=== PATIENT | female | born 1950 | race Caucasian/White ===

== ENCOUNTER 2016-12-27 14:11 | Inpatient (IN) | payer OTHER ==
[2016-12-27] MEDS ORDERED: NORMAL SALINE 1000 ML 1,000 ML IV ONE (14:38)
--- NOTE | 2016-12-27 14:39 | ER Document Report ---
ED Medical Screen (RME) - General Chief Complaint: Breathing Difficulty Stated Complaint: SHORTNESS OF BREATH Time Seen by Provider: 12/27/16 14:29 Mode of Arrival: Medic Information source: Patient Notes: Patient presents complaining of rapid heart rate and exertional shortness of breath. Patient reports she had vomiting and diarrhea over the past several days. Patient with fever of 101 at this time. EMS gave Tylenol. Patient states she has had a history of rapid heart rate off and on over the past 10 years. TRAVEL OUTSIDE OF THE [place] IN LAST 30 DAYS: No - Related Data Allergies/Adverse Reactions: No Known Allergies Allergy (Verified 04/17/16 03:58) Past Medical History Psychiatric Medical History: Reports: Hx Bipolar Disorder, Hx Depression - and anxiety Past Surgical History: Reports: Hx Breast Surgery, Hx Section, Hx Orthopedic Surgery - L knee, R foot - Immunizations Hx Diphtheria, Pertussis, Tetanus Vaccination: Yes Physical Exam - Cardiovascular Rhythm: Tachycardia Heart sounds: S1 appreciated, S2 appreciated Course - Re-evaluation Re-evalutation: 12/27/16 14:39 Report and handout given to Dr. Haider
--- NOTE | 2016-12-27 14:53 | ER Document Report ---
ED General - General Chief Complaint: Breathing Difficulty Stated Complaint: SHORTNESS OF BREATH Time Seen by Provider: 12/27/16 14:29 Mode of Arrival: Medic Notes: 66-year-old female with history of "heart problem" consisting of rapid heart rate without clear diagnosis or medications presents with weakness dizziness, dyspnea on exertion and positional dizziness onset yesterday after having 4 days of vomiting which turned into diarrhea which is now resolving. She was brought immediately back to the room with hypotension diaphoresis and tachycardia. History is limited secondary to acuity. TRAVEL OUTSIDE OF THE [place] IN LAST 30 DAYS: No - Related Data Allergies/Adverse Reactions: No Known Allergies Allergy (Verified 04/17/16 03:58) Past Medical History - Social History Smoking Status: Current Every Day Smoker Family History: Reviewed & Not Pertinent Psychiatric Medical History: Reports: Hx Bipolar Disorder, Hx Depression - and anxiety Past Surgical History: Reports: Hx Breast Surgery, Hx Section, Hx Orthopedic Surgery - L knee, R foot - Immunizations Hx Diphtheria, Pertussis, Tetanus Vaccination: Yes Review of Systems - Review of Systems Notes: REVIEW OF SYSTEMS Limited secondary to acuity PHYSICAL EXAMINATION General: N pale diaphoretic Head: Atraumatic, normocephalic ENT: Mouth normal, oropharynx moist, no exudates or tonsillar enlargement Eyes: Conjunctiva normal, pupils equal, lids normal Neck: No JVD, supple, no guarding CVS: Tachycardia no edema Resp: No resp distress, equal and normal breath sounds bilaterally GI: Nondistended, soft, no tenderness to palpation, no rebound or guarding Ext: No deformities, no edema, normal range of motion in upper and lower ext Back: No CVA or midline TTP Skin: No rash, warm Lymphatic: No lymphadeopathy noted Neuro: Awake, alert. Face symmetric. GCS 15. Physical Exam - Vital signs Vitals: Pulse Ox 98 12/27/16 14:20 Course - Re-evaluation Re-evalutation: 12/27/16 14:52 66-year-old female presents with hypotension tachycardia diaphoresis. She has had diarrhea for a few days and has a history of some sort of rapid heart rate. The monitor shows a regular narrow complex tachycardia. EKG is performed immediately and shows an super ventricular tachycardia. I will try fluids, she will receive 1 L at which point she will be cardioverted for instability. Labs are sent. 12/27/16 15:37 Patient reassessed at about 3:25 PM. Her heart rate is decreased to the 140s and is still a regular narrow complex tachycardia, her blood pressure is increased to 120/90, and she is no longer diaphoretic and pale. At this point she does not require emergent cardioversion. I will follow-up her labs, and repeat her ECG after her second liter of fluid. 12/27/16 16:36 Patient on reassessment has blood pressure in the 100s but feels okay. Her heart rate is decreased to the 130s and appears to be sinus. Her labs have come back with an indeterminate troponin a low magnesium and potassium. This is likely secondary to diarrhea. I will replete this with IV potassium and magnesium and the patient will be admitted. I ordered 1L lactated Ringer's. 12/27/16 16:45 - Vital Signs Vital signs: Temp Pulse Resp BP Pulse Ox 16 121/91 H 99 12/27/16 15:31 12/27/16 15:31 12/27/16 15:31 - Laboratory Result Diagrams: 12/27/16 15:25 12/27/16 15:25 Laboratory results interpreted by me: 12/27/16 12/27/16 12/27/16 15:25 15:25 15:25 MCV 99 H VBG pCO2 VBG HCO3 Potassium 3.3 L Carbon Dioxide 20 L Magnesium 1.4 L Direct Bilirubin 0.5 H AST 268 H ALT 226 H Creatine Kinase 581 H CK-MB (CK-2) 11.70 H Urine Ketones 12/27/16 12/27/16 15:45 15:45 MCV VBG pCO2 28.6 L VBG HCO3 18.2 L Potassium Carbon Dioxide Magnesium Direct Bilirubin AST ALT Creatine Kinase CK-MB (CK-2) Urine Ketones TRACE H - EKG Interpretation by Me Rate: Tachycardia Rhythm: SVT Critical Care Note - Critical Care Note Total time excluding time spent on procedures (mins): 35 Comments: The above patient is critically ill. Not including procedures, but including direct re-evaluations, speaking with patient and/or consultants, interpreting results, and documenting, I spent the total amount of minute listed listed above on critical care time Discharge - Discharge Clinical Impression: Hypotension Qualifiers: Hypotension type: other hypotension type Qualified Code(s): I95.89 - Other hypotension Condition: Fair Disposition: ADMITTED INPATIENT Admitting Provider: Hospitalist Unit Admitted: [facility]
[2016-12-27] MEDS: NORMAL SALINE 1000 ML 1,000 ML IV PRN ×3 (15:18→21:41)
--- NOTE | 2016-12-27 15:46 | RADIOLOGY REPORT (SQ) ---
EXAM DESCRIPTION: CHEST SINGLE VIEW COMPLETED DATE/TIME: 12/27/2016 3:36 pm REASON FOR STUDY: fever, tachycardia COMPARISON: 04/17/2016 EXAM PARAMETERS: NUMBER OF VIEWS: One view. TECHNIQUE: Single frontal radiographic view of the chest acquired. RADIATION DOSE: NA LIMITATIONS: None. FINDINGS: LUNGS AND PLEURA: There is mild subsegmental atelectasis in the left base. There is no in filtrate or effusion. There is no mass. MEDIASTINUM AND HILAR STRUCTURES: No masses. Contour normal. HEART AND VASCULAR STRUCTURES: Heart normal in size. Normal vasculature. BONES: No acute findings. HARDWARE: None in the chest. OTHER: No other significant finding. IMPRESSION: NO ACUTE RADIOGRAPHIC FINDING IN THE CHEST. TECHNICAL DOCUMENTATION: JOB ID: [id number]
[2016-12-27 15:50] LABS: ABSOLUTE BASOPHILS # (AUTO) 0.1 10^3/uL (0.0-0.2); ABSOLUTE LYMPHOCYTES (AUTO) 1.6 10^3/uL (0.5-4.7); ABSOLUTE MONOCYTES (AUTO) 0.7 10^3/uL (0.1-1.4); ABSOLUTE NEUT (AUTO) 5.4 10^3/uL (1.7-8.2); BASOPHILS % (AUTO) 0.8 % (0-2); EOSINOPHILS % (AUTO) 0.6 % (0-6); HEMATOCRIT 41.3 % (36.0-47.0); HEMOGLOBIN 13.9 g/dL (12.0-15.5); HGB HCT DIFFERENCE 0.4; LYMPHOCYTES % (AUTO) 20.3 % (13-45); MEAN CORPUSCULAR HEMOGLOBIN 33.2 pg (27.0-33.4); MEAN CORPUSCULAR HGB CONC 33.7 g/dL (32.0-36.0); MEAN CORPUSCULAR VOLUME 99 fl (80-97); MONOCYTES % (AUTO) 8.5 % (3-13); RED BLOOD COUNT 4.19 10^6/uL (3.72-5.28); RED CELL DISTRIBUTION WIDTH 13.8 % (11.5-14.0); SEGMENTED NEUTROPHILS % (AUTO) 69.8 % (42-78); WHITE BLOOD COUNT 7.7 10^3/uL (4.0-10.5)
[2016-12-27 16:02] LABS: PROTHROMBIN TIME 12.7 SEC (11.4-15.4)
[2016-12-27 16:05] LABS: VENOUS BLOOD BASE EXCESS -4.8 mmol/L; VENOUS BLOOD HCO3 18.2 mmol/L (20-32); VENOUS BLOOD PCO2 28.6 mmHg (35-63); VENOUS BLOOD PH 7.42 (7.30-7.42)
[2016-12-27 16:11] LABS: APPEARANCE,URINE CLEAR; BILIRUBIN,URINE NEGATIVE (NEGATIVE); GLUCOSE, URINE NEGATIVE (NEGATIVE); KETONES,URINE TRACE mg/dL (NEGATIVE); LEUKOCYTE ESTERASE,URINE NEGATIVE (NEGATIVE); NITRITE,URINE NEGATIVE (NEGATIVE); PROTEIN,URINE NEGATIVE (NEGATIVE); URINE SPECIFIC GRAVITY 1.003; UROBILINOGEN,URINE NEGATIVE mg/dL (<2.0)
[2016-12-27 16:16] LABS: ALANINE AMINOTRANSFERASE 226 U/L (9-52); ALBUMIN 3.9 g/dL (3.5-5.0); ALKALINE PHOSPHATASE 87 U/L (38-126); ANION GAP 13 (5-19); ASPARTATE AMINO TRANSFERASE 268 U/L (14-36); BILIRUBIN,DIRECT 0.5 mg/dL (0.0-0.4); BILIRUBIN,TOTAL 1.3 mg/dL (0.2-1.3); BLOOD UREA NITROGEN 11 mg/dL (7-20); CALCIUM 9.1 mg/dL (8.4-10.2); CARBON DIOXIDE 20 mmol/L (22-30); CHLORIDE 107 mmol/L (98-107); CREATINE KINASE 581 U/L (30-135); GLUCOSE 110 mg/dL (75-110); MAGNESIUM 1.4 mg/dL (1.6-2.3); POTASSIUM 3.3 mmol/L (3.6-5.0); SODIUM 139.9 mmol/L (137-145)
[2016-12-27 16:27] LABS: CREATINE KINASE MB 11.7 ng/mL (<4.55)
[2016-12-27 16:29] LABS: TROPONIN I 0.382 ng/mL
[2016-12-27] MEDS ORDERED: RINGERS SOLUTION,LACTATED 1,000 ML IV ONE (16:36)
[2016-12-27] MEDS ORDERED: ADENOSINE INJ/PF 6 MG/2 ML SDV IV ONE (16:54)
[2016-12-27] MEDS ORDERED: DILTIAZEM HCL/D5W 125 ML IV PRN (18:18)
[2016-12-27] MEDS ORDERED: DILTIAZEM HCL INJ 25 MG/5 ML VIAL IV ONE (18:18)
[2016-12-27] MEDS ORDERED: ACETAMINOPHEN 325 MG TABLET PO PRN (18:20)
[2016-12-27] MEDS ORDERED: ONDANSETRON HCL INJ/PF 4 MG/2 ML SDV IV PRN (18:26)
--- NOTE | 2016-12-27 18:51 | PDOC H&P ---
History of Present Illness Admission Date/PCP: 12/27/16 17:50 Patient complains of: Palpitations History of Present Illness: NEDRA MEYER is a 66 year old female, with history of tachycardia presents to the hospital because of palpitation of several days duration. The patient has been having diarrhea for the past 4 days that is watery and dark but started to ease off according to the patient. there is no recent travel, intake of leftover foods, nor exposure to someone sick with diarrhea. Patient denies any chills or fever associated. She started to develop lightheadedness and dizziness intermittently. She is unsure whether she was tachycardic at that time but she started noticing it 3 days ago. There is no chest pain but the patient will feel lightheaded, nauseous, and sweaty. 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 The ambulance was called. It was reported that the patient had 160 of heart rate. In the emergency room patient was given boluses of IV fluids. The tachycardia improved in the 130s. Magnesium and potassium was low. Troponin was abnormal. Patient was then referred for admission. Patient denies any chest pain at all. Likewise there is no PND nor orthopnea. Past Medical History Cardiac Medical History: Reports: Other - Probable SVT Psychiatric Medical History: Reports: Bipolar Disorder, Depression - and anxiety , Post Traumatic Stress Disorder Past Surgical History Past Surgical History: Reports: Section, Orthopedic Surgery - L knee, R foot, Other - Lumpectomy Social History Information Source: Patient Smoking Status: Current Every Day Smoker Frequency of Alcohol Use: None Hx Recreational Drug Use: Yes Drugs: Marijuana Family History Family History: CAD, CVA, Other - Cancer of the mouth Parental Family History Reviewed: Yes Children Family History Reviewed: Yes Sibling(s) Family History Reviewed.: Yes Medication/Allergy Home Medications: No Home Medications 12/27/16 Allergies/Adverse Reactions: No Known Allergies Allergy (Verified 04/17/16 03:58) Review of Systems Constitutional: PRESENT: weakness - Generalized. ABSENT: chills, fever(s), headache(s), weight gain, weight loss Eyes: ABSENT: visual disturbances Ears: ABSENT: hearing changes Nose, Mouth, and Throat: ABSENT: mouth pain, sore throat Cardiovascular: PRESENT: palpitations. ABSENT: chest pain, dyspnea on exertion , edema, orthropnea Respiratory: PRESENT: cough. ABSENT: dyspnea, hemoptysis, sputum Gastrointestinal: PRESENT: diarrhea, heartburn, nausea. ABSENT: abdominal pain , bloating, coffee ground emesis, constipation, hematemesis, hematochezia, melena, vomiting Genitourinary: ABSENT: difficulty urinating, dysuria, hematuria Musculoskeletal: ABSENT: joint swelling Integumentary: ABSENT: pruritus, rash, wounds Neurological: ABSENT: abnormal gait, abnormal speech, confusion, dizziness, focal weakness, syncope Psychiatric: ABSENT: anxiety, depression, homidical ideation, suicidal ideation Endocrine: ABSENT: cold intolerance, heat intolerance, polydipsia, polyphagia, polyuria Hematologic/Lymphatic: ABSENT: easy bleeding, easy bruising Physical Exam Vital Signs: Temp Pulse Resp BP Pulse Ox 16 121/91 H 99 12/27/16 15:31 12/27/16 15:31 12/27/16 15:31 General appearance: PRESENT: no acute distress, cooperative, obese - Overweight Head exam: PRESENT: atraumatic, normocephalic Eye exam: PRESENT: conjunctiva pink, EOMI, PERRLA. ABSENT: scleral icterus Ear exam: PRESENT: normal external ear exam Mouth exam: PRESENT: dry mucosa, neck supple, tongue midline Throat exam: ABSENT: post pharyngeal erythema, tonsillar erythema, tonsillar exudate Neck exam: ABSENT: carotid bruit, JVD, lymphadenopathy, thyromegaly Respiratory exam: PRESENT: clear to auscultation francisco. ABSENT: rales, rhonchi, wheezes Cardiovascular exam: PRESENT: RRR, +S1, +S2, tachycardia. ABSENT: gallop, rubs Pulses: PRESENT: normal dorsalis pedis pul Vascular exam: PRESENT: normal capillary refill GI/Abdominal exam: PRESENT: hyperactive bowel sounds, soft. ABSENT: distended, guarding, mass, organolmegaly, rebound, tenderness Rectal exam: PRESENT: deferred Extremities exam: PRESENT: full ROM, other - Trace lower extremity edema. ABSENT: calf tenderness, clubbing Neurological exam: PRESENT: alert, awake, oriented to person, oriented to place , oriented to time, oriented to situation Psychiatric exam: PRESENT: appropriate affect, normal mood. ABSENT: homicidal ideation, suicidal ideation Skin exam: PRESENT: dry, intact, warm. ABSENT: cyanosis, rash Results Impressions: Chest X-Ray 12/27/16 14:36 IMPRESSION: NO ACUTE RADIOGRAPHIC FINDING IN THE CHEST. Assessment & Plan - Diagnosis (1) Hypotension Qualifiers: Hypotension type: other hypotension type Qualified Code(s): I95.89 - Other hypotension Is this a current diagnosis for this admission?: Yes (2) Supraventricular tachycardia Is this a current diagnosis for this admission?: Yes (3) Elevated troponin Is this a current diagnosis for this admission?: Yes (4) Diarrhea Qualifiers: Diarrhea type: presumed infectious Qualified Code(s): A09 - Infectious gastroenteritis and colitis, unspecified Is this a current diagnosis for this admission?: Yes (5) Major depression Qualifiers: Major depression recurrence: recurrent Active/Remission status: remission status unspecified Qualified Code(s): F33.9 - Major depressive disorder, recurrent, unspecified Is this a current diagnosis for this admission?: Yes (6) PTSD (post-traumatic stress disorder) Is this a current diagnosis for this admission?: Yes (7) Bipolar disorder Qualifiers: Active/Remission status: remission status unspecified Qualified Code (s): F31.9 - Bipolar disorder, unspecified Is this a current diagnosis for this admission?: Yes - Time Time Spent: 50 to 70 Minutes - Inpatient Certification Based on my medical assessment, after consideration of the patient's comorbidities, presenting symptoms, or acuity I expect that the services needed warrant INPATIENT care.: Yes I certify that my determination is in accordance with my understanding of Medicare's requirements for reasonable and necessary INPATIENT services [42 CFR 412.3e].: Yes Medical Necessity: Significant Comorbidiites Make Outpatient Treatment Too Risky , Need Close Monitoring Due to Risk of Patient Decompensation, Need For IV Fluids, Risk of Complication if Not Cared For in Hospital, Risk of Diagnosis Which Will Require Inpatient Eval/Care/Monitoring Post Hospital Care: D/C Shellfish Manager Documentation - Plan Summary Plan Summary: Patient will be admitted to [facility]. We will begin Cardizem drip after a bolus of Cardizem is given. We will serially monitor cardiac enzymes. I will put the patient on aspirin and Plavix, supplemental oxygen, and check a TSH. Cardiology was consulted, Dr. Lange we will evaluate the patient. In the meantime in terms of the diarrhea, I will obtain culture and Clostridium for difficile toxin. I will treated for infectious type of diarrhea with ciprofloxacin and Flagyl. I will hydrate the patient with normal saline. In terms of the abnormal liver function tests, we will obtain a hepatitis panel and an abdominal ultrasound. DVT prophylaxis with Lovenox will be placed. No need for full anticoagulation at this time as discussed with cardiology. Further testing depends on the initial evaluation as outlined above. Echocardiogram as per cardiology decision.
[2016-12-27] MEDS ORDERED: CLOPIDOGREL BISULFATE 75 MG TABLET PO ONE (19:00)
[2016-12-27] MEDS: MAGNESIUM SULFATE/D5W 100 ML IV SCH ×2 (19:11→20:20)
--- NOTE | 2016-12-27 19:17 | EKG REPORT ---
SEVERITY:- ABNORMAL ECG - SINUS RHYTHM INFERIOR INFARCT, ACUTE,, EVOLUTIONARY CHANGES. PROLONGED QT INTERVAL : Confirmed by: Colby Gan MD 27-Dec-2016 19:16:14
--- NOTE | 2016-12-27 19:17 | EKG REPORT ---
SEVERITY:- ABNORMAL ECG - SINUS TACHYCARDIA INFERIOR INFARCT, ACUTE EVOLUTIOANRY CHANGES PROLONGED QT INTERVAL : Confirmed by: Colby Gan MD 27-Dec-2016 19:16:54
--- NOTE | 2016-12-27 19:19 | EKG REPORT ---
SEVERITY:- ABNORMAL ECG - JUNCTIONAL TACHYCARDIA INFERIOR INFARCT, ACUTE, EVOLUTIOANRY CHANGES. PROLONGED QT INTERVAL : Confirmed by: Colby Gan MD 27-Dec-2016 19:18:02
[2016-12-27] MEDS: POTASSI CL 20 MEQ/50 ML RIDER 50 ML IV SCH ×2 (21:35→23:10)
[2016-12-27 22:40] LABS: CREATINE KINASE MB 9.49 ng/mL (<4.55); TROPONIN I 0.323 ng/mL
[2016-12-27] MEDS: METRONIDAZOLE 500 MG/NS RTU 100 ML IV SCH (22:50)
[2016-12-27] MEDS: CIPROFLOXACIN 400 MG/D5W RTU 400 MG/200 ML RTUPB IV SCH (23:36)
[2016-12-28 02:27] LABS: URINE BARBITURATES SCREEN NEGATIVE; URINE METHADONE SCREEN NEGATIVE; URINE OPIATES LOW NEGATIVE; URINE PHENCYCLIDINE SCREEN NEGATIVE
[2016-12-28] MEDS: METRONIDAZOLE 500 MG/NS RTU 100 ML IV SCH ×4 (04:01→20:20)
[2016-12-28 05:08] LABS: ANION GAP 9 (5-19); BLOOD UREA NITROGEN 7 mg/dL (7-20); CALCIUM 8.2 mg/dL (8.4-10.2); CARBON DIOXIDE 18 mmol/L (22-30); CHLORIDE 116 mmol/L (98-107); CREATININE RESULT 0.56 mg/dL (0.52-1.25); GLUCOSE 102 mg/dL (75-110); MAGNESIUM 1.7 mg/dL (1.6-2.3); PHOSPHORUS 1.8 mg/dL (2.5-4.5); POTASSIUM 3.2 mmol/L (3.6-5.0); SODIUM 143.3 mmol/L (137-145)
[2016-12-28] MEDS: NORMAL SALINE 1000 ML 1,000 ML IV PRN (05:08)
[2016-12-28] MEDS: LANSOPRAZOLE 30 MG TAB.RAP.DR PO SCH (05:08)
[2016-12-28 05:19] LABS: CREATINE KINASE MB 9.85 ng/mL (<4.55)
[2016-12-28 05:27] LABS: TROPONIN I 0.272 ng/mL
--- NOTE | 2016-12-28 07:51 | EKG REPORT ---
SEVERITY:- ABNORMAL ECG - SINUS RHYTHM BORDERLINE INFERIOR Q WAVES NONSPECIFIC T ABNORMALITIES, INFERIOR LEADS : Confirmed by: Colby Gan MD 28-Dec-2016 07:51:07
[2016-12-28] MEDS: POTASSI CL 20 MEQ/50 ML RIDER 20 MEQ/50 ML RTUPB IV SCH ×2 (08:24→10:14)
--- NOTE | 2016-12-28 08:30 | RADIOLOGY REPORT (SQ) ---
EXAM DESCRIPTION: U/S ABDOMEN COMPLETE W/DOPPLER COMPLETED DATE/TIME: 12/28/2016 7:33 am REASON FOR STUDY: abnormal LFTs, abdominal pain, diarrhea COMPARISON: None. TECHNIQUE: Dynamic and static grayscale images acquired of the abdomen and recorded on PACS. Additio nal selected color Doppler and spectral images recorded. LIMITATIONS: Study limited due to acoustical interference from fat or from air in the bowel. FINDINGS: PANCREAS: Limited visualization. LIVER: Echotexture is coarse with increased echogenicity consistent with fatty infiltration. Limited visualization left lobe. LIVER VASCULATURE: Normal directional flow of the main portal vein and hepatic veins. GALLBLADDER: No stones. Normal wall thickness. No pericholecystic fluid. ULTRASOUND-DETECTED COLON'S SIGN: Negative. INTRAHEPATIC DUCTS AND COMMON DUCT: CBD and intrahepatic ducts normal caliber. No filling defects. INFERIOR VENA CAVA: Normal flow. AORTA: No aneurysm. RIGHT KIDNEY: Normal size. Normal echogenicity. No solid or suspicious masses. No hydronephrosis. No calcifications. LEFT KIDNEY: Normal size. Normal echogenicity. No solid or suspicious masses. No hydronephrosis. No calcifications. SPLEEN:Obscured PERITONEAL AND PLEURAL SPACES: No ascites or effusions. OTHER: No other significant finding. IMPRESSION: Coarse echoes the liver concerning for fatty change. No focal mass or ascites. No gall stones identified. TECHNICAL DOCUMENTATION: JOB ID: [id number] [employer]- All Rights Reserved
[2016-12-28] MEDS ORDERED: ZOLPIDEM TARTRATE 5 MG TABLET PO PRN (10:12)
[2016-12-28] MEDS: ENOXAPARIN SODIUM INJ 40 MG/0.4 ML DISP.SYRIN SUBCUT SCH (10:14)
[2016-12-28] MEDS: CLOPIDOGREL BISULFATE 75 MG TABLET PO SCH (10:15)
[2016-12-28] MEDS: ASPIRIN 81 MG TABLET, CHEWABLE PO SCH (10:15)
--- NOTE | 2016-12-28 10:28 | PDOC PROGRESS REPORT ---
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 ABSENT: scleral icterus Mouth exam: PRESENT: moist, tongue midline Neck exam: ABSENT: JVD Respiratory exam: PRESENT: clear to auscultation francisco. ABSENT: rales, rhonchi, wheezes Cardiovascular exam: PRESENT: RRR. ABSENT: diastolic murmur, rubs, systolic murmur GI/Abdominal exam: PRESENT: normal bowel sounds, soft, tenderness - Mild lower abdominal tenderness. ABSENT: distended, guarding, mass, organolmegaly, rebound Rectal exam: PRESENT: deferred Extremities exam: ABSENT: calf tenderness, clubbing, pedal edema Neurological exam: PRESENT: alert, awake, oriented to person, oriented to place , oriented to time, oriented to situation, CN II-XII grossly intact. ABSENT: motor sensory deficit Psychiatric exam: PRESENT: appropriate affect Skin exam: PRESENT: dry, intact, warm. ABSENT: cyanosis, rash Results Laboratory Results: 12/28/16 04:25 12/28/16 04:25 Sodium 143.3 Potassium 3.2 L Chloride 116 H Carbon Dioxide 18 L Anion Gap 9 BUN 7 Creatinine 0.56 Est GFR ( Amer) > 60 Est GFR (Non-Af Amer) > 60 Glucose 102 Calcium 8.2 L Phosphorus 1.8 L Magnesium 1.7 12/27/16 12/27/16 12/28/16 21:50 21:50 04:25 Creatine Kinase 481 H 537 H CK-MB (CK-2) 9.49 H Troponin I 0.323 12/28/16 04:25 Creatine Kinase CK-MB (CK-2) 9.85 H Troponin I 0.272 Impressions: Chest X-Ray 12/27/16 14:36 IMPRESSION: NO ACUTE RADIOGRAPHIC FINDING IN THE CHEST. Abdomen Ultrasound 12/28/16 00:00 IMPRESSION: Coarse echoes the liver concerning for fatty change. No focal mass or ascites. No gallstones identified. Assessment & Plan - Diagnosis (1) Hypotension Qualifiers: Hypotension type: other hypotension type Qualified Code(s): I95.89 - Other hypotension Is this a current diagnosis for this admission?: YesPlan: Resolved with IV fluids. (2) Supraventricular tachycardia Is this a current diagnosis for this admission?: YesPlan: Patient is rate controlled at this time. (3) Bipolar disorder Qualifiers: Active/Remission status: remission status unspecified Qualified Code (s): F31.9 - Bipolar disorder, unspecified Is this a current diagnosis for this admission?: Yes (4) Diarrhea Qualifiers: Diarrhea type: presumed infectious Qualified Code(s): A09 - Infectious gastroenteritis and colitis, unspecified Is this a current diagnosis for this admission?: YesPlan: Has a positive C. difficile toxin. She is already been started on Cipro and Flagyl we will continue with those for now. (5) Elevated troponin Is this a current diagnosis for this admission?: YesPlan: Most likely secondary to the tachycardia. Troponins have been elevated but have been flat. She has been evaluated by cardiology. (6) PTSD (post-traumatic stress disorder) Is this a current diagnosis for this admission?: Yes - Time Time Spent with patient: 25-34 minutes - Inpatient Certification Medical Necessity: Need For IV Fluids, Need for IV Antibiotics
--- NOTE | 2016-12-28 11:27 | PDOC CONSULTATION ---
Consultation Consult Date: 12/28/16 Attending physician:: THERON MOLINA Consult reason:: SVT and abnormal troponin I History of Present Illness Admission Date/PCP: 12/27/16 18:20 Patient complains of: Palpitations History of Present Illness: NEDRA MEYER is a 66 year old female, with history of tachycardia presents to the hospital because of palpitation of several days duration. The patient has been having diarrhea for the past 4 days that is watery and dark but started to ease off according to the patient. there is no recent travel, intake of leftover foods, nor exposure to someone sick with diarrhea. Patient denies any chills or fever associated. She started to develop lightheadedness and dizziness intermittently. She is unsure whether she was tachycardic at that time but she started noticing it 3 days ago. There is no chest pain but the patient will feel lightheaded, nauseous, and sweaty. The patient reports that she was worked up by a psychiatric attendant before but could not tell why she has the tachycardia. The ambulance was called. It was reported that the patient had 160 of heart rate. In the emergency room patient was given boluses of IV fluids. The tachycardia improved in the 130s. Magnesium and potassium was low. Troponin was abnormal. Patient was then referred for admission. Patient denies any chest pain at all. Likewise there is no PND nor orthopnea. Electrocardiograms were reviewed. It seems patient had ST elevation in inferior and lateral chest leads consistent with inferolateral myocardial infarction. However patient has no chest pain and seems currently stable. Patient had general fatigue and tiredness. Patient also describes problems with sleep with history of snoring, daytime fatigue, sleepiness and also problems with insomnia. Patient denies any prior history of myocardial infarction, angina etc. Past Medical History Cardiac Medical History: Reports: Other - Probable SVT Psychiatric Medical History: Reports: Bipolar Disorder, Depression, Post Traumatic Stress Disorder Past Surgical History Past Surgical History: Reports: Section, Orthopedic Surgery - L knee, R foot, Other - Lumpectomy Social History Information Source: Patient Smoking Status: Current Some Day Smoker Cigarettes Packs Per Day: 0.5 Number of Years Smokin Frequency of Alcohol Use: None Hx Recreational Drug Use: No Drugs: None Hx Prescription Drug Abuse: No - Advance Directive Resuscitation Status: Full Code Family History Family History: CAD, CVA, Other - Cancer of the mouth Parental Family History Reviewed: Yes Children Family History Reviewed: Yes Sibling(s) Family History Reviewed.: Yes Medication/Allergy Home Medications: Aspirin [Aspirin EC] 81 mg PO DAILY 12/28/16 Naproxen Sodium [Aleve] 220 mg PO BIDP PRN 12/28/16 Allergies/Adverse Reactions: No Known Allergies Allergy (Verified 04/17/16 03:58) Review of Systems Review of Systems: Please see history of present illness and past medical history as wall. Constitutional: No fever or chills reported. Head : No recent chronic headaches, recent head injury. Eyes: No recent eye pain, diplopia, redness, discharge, acute visual changes. Ears: No recent chronic ear pain, acute hearing loss, ear discharge. Oral cavity: No recent ulcerations, bleeding, oral cavity discomfort. Neck: No recent acute neck pain reported. Hematologic: No recent easy bruising or bleeding or hematologic malignancy reported. Lymphatic: No recent lymphatic malignancy, chronic lymphadenopathy reported yet Cardiovascular system review: See history of present illness. History of palpitations Respiratory system review: No recent chronic cough, hemoptysis, blood clots in the lungs reported. Mild Shortness of breath on exertion Gastrointestinal system review: Negative for hematemesis, melena, positive for recent diarrhea and intermittent abdominal pain. Genitourinary system review: No recent acute or chronic hematuria, flank pain, UTI etc. reported. Skin system review: Negative for any recent abnormal bruising, no rash, no pruritus reported. Neurologic: No prior history of strokes, mini strokes, seizure disorder. Psychologic: No history of major psychosis or major depression reported. Musculoskeletal: Minor aches and pains reported. No acute joint swelling reported. Endocrine: No recent polyuria, polydipsia, recent heat or cold intolerance. Physical Exam Vital Signs: Temp Pulse Resp BP Pulse Ox 98.8 F 91 18 161/83 H 100 12/28/16 07:31 12/28/16 07:31 12/28/16 07:31 12/28/16 07:31 12/28/16 07:31 Intake & Output 12/27/16 12/28/16 12/29/16 06:59 06:59 06:59 Intake Total 1967 Output Total 300 Balance 1667 Weight 91 kg Exam: GENERAL: well-nourished and in no acute distress. Alert and oriented x3 HEAD: Atraumatic, normocephalic. EYES: Pupils equal round and reactive to light, extraocular movements intact, sclera anicteric, conjunctiva are normal. ENT: TMs normal, nares patent, oropharynx clear without exudates. Moist mucous membranes. No oral ulcerations or bleeding gums noted NECK: supple without lymphadenopathy. Trachea is central. No cervical or axillary lymphadenopathy noted. Carotids are 2+, JVD WNL LUNGS: Respiration seems nonlabored, no significant accessory muscle action noted. Breath sounds clear to auscultation bilaterally and equal noted. No wheezes rales or rhonchi noted. No significant dullness noted on percussion. CHEST: Palpation of the chest wall shows no significant chest wall tenderness. No other significant abnormalities noted. HEART: [place] [employer], No PSH, 1/6 CONTRERAS aortic area, 1/6 henderson systolic murmur mitral area, no rubs, no gallops. ABDOMEN: Soft, no significant tenderness appreciated, normoactive bowel sounds. No guarding, no rebound. No rigidity noted . No masses appreciated. EXTREMITIES: Pedal pulses are 1-2+, no calf tenderness noted. No clubbing or cyanosis.trace to 1+ pedal edema noted NEUROLOGICAL: Focused neurological exam showed no significant neurologic deficit. Normal speech, no focal weakness appreciated. PSYCH: Normal mood, normal affect. Judgment and insight within normal limits. SKIN: No significant ecchymosis, rash, ulcerations or signs of pruritus noted. MUSCULOSKELETAL EXAM: No significant joint swelling noted. Results Laboratory Results: 12/28/16 04:25 12/28/16 04:25 Sodium 143.3 Potassium 3.2 L Chloride 116 H Carbon Dioxide 18 L Anion Gap 9 BUN 7 Creatinine 0.56 Est GFR ( Amer) > 60 Est GFR (Non-Af Amer) > 60 Glucose 102 Calcium 8.2 L Phosphorus 1.8 L Magnesium 1.7 12/27/16 12/27/16 12/28/16 21:50 21:50 04:25 Creatine Kinase 481 H 537 H CK-MB (CK-2) 9.49 H Troponin I 0.323 12/28/16 04:25 Creatine Kinase CK-MB (CK-2) 9.85 H Troponin I 0.272 EKG Comments: Twelve-lead EKG shows ST elevation in inferior and lateral chest leads Impressions: Chest X-Ray 12/27/16 14:36 IMPRESSION: NO ACUTE RADIOGRAPHIC FINDING IN THE CHEST. Abdomen Ultrasound 12/28/16 00:00 IMPRESSION: Coarse echoes the liver concerning for fatty change. No focal mass or ascites. No gallstones identified. Assessment & Plan - Diagnosis (1) ST elevation (STEMI) myocardial infarction Qualifiers: Involved coronary artery: unspecified coronary artery Qualified Code(s): I21.3 - ST elevation (STEMI) myocardial infarction of unspecified site Is this a current diagnosis for this admission?: Yes (2) Diarrhea Qualifiers: Diarrhea type: presumed infectious Qualified Code(s): A09 - Infectious gastroenteritis and colitis, unspecified Is this a current diagnosis for this admission?: Yes (3) Elevated troponin Is this a current diagnosis for this admission?: Yes (4) Bipolar disorder Qualifiers: Active/Remission status: remission status unspecified Qualified Code(s): F31.9 - Bipolar disorder, unspecified Is this a current diagnosis for this admission?: Yes (6) Supraventricular tachycardia Is this a current diagnosis for this admission?: Yes (7) Hypokalemia Is this a current diagnosis for this admission?: Yes (8) Tobacco abuse Is this a current diagnosis for this admission?: Yes - Notes Notes: ST segment elevation myocardial infarction: Initial EKG shows ST segment elevation myocardial infarction. Most likely brought on by supraventricular tachycardia. Currently patient stable. Will recommend a stress test prior to discharge. Will optimize medical therapy by starting statins, beta blockers and ARAM inhibitors/ARB. Continue with aspirin and Plavix therapy. A 2D echo has been ordered for risk stratification. Diarrhea: Being evaluated by the hospitalist. Elevated troponin I: Most likely related to non-ST segment elevation myocardial infarction brought on by tachycardia. Supraventricular tachycardia: Continue Cardizem for the time being. Will start patient on beta-kerry. Hypokalemia: Probably related to diarrhea. Continue with replacement therapy. Tobacco abuse: Patient advised to quit smoking. - Time Time Spent: 50 to 70 Minutes - CODE STATUS was discussed, patient remains full code. Surrogate decision-maker not yet identified by the patient. Currently patient making her own decisions. Multiple medical problems were addressed. More than 50% of the time spent coordinating care, discussing management plans with involved caregivers. Management plans discussed with involved personnels. Medical decision making was of moderate to high complexity, patient's has multiple comorbidities. Medications reviewed and adjusted accordingly: Yes
[2016-12-28] MEDS ORDERED: LISINOPRIL 5 MG TABLET PO ONE (11:30)
[2016-12-28] MEDS ORDERED: METOPROLOL SUCCINATE 25 MG TAB.SR.24H PO ONE (11:30)
[2016-12-28 12:28] LABS: CREATINE KINASE MB 9.69 ng/mL (<4.55); TROPONIN I 0.199 ng/mL
[2016-12-28] MEDS: CIPROFLOXACIN 400 MG/D5W RTU 400 MG/200 ML RTUPB IV SCH ×2 (15:06→22:57)
--- NOTE | 2016-12-28 19:22 | XCELERA REPORT ---
[address] [address] Transthoracic Echocardiogram Report Name: NEDRA MEYER Age: 66 yrs Gender: Female : 1950 Patient Status: Inpatient Patient Location: [id number]\A Study Date: 12/28/2016 02:18 PM Procedure: A complete two-dimensional transthoracic echocardiogram was performed (2D, M-mode, spectral and color flow Doppler). The study was technically difficult with many images being suboptimal in quality. Reason For Study: abn troponin, svt Ordering Physician: BELKIS RADFORD Performed By: Jessica Crabtree Interpretation Summary The left ventricular ejection fraction is normal. There is mild concentric left ventricular hypertrophy. Doppler measurements suggest pseudonormalized left ventricular relaxation, which is associated with grade II/IV or mild to moderate diastolic dysfunction The left ventricle is grossly normal size. Wall motion cannot be accurately commented on, but no definite regional wall motion abnormalities noted. The right ventricle is mildly dilated. The right ventricle appears to be hypertrophied The right ventricular systolic function is normal. The left atrial size is normal. The right atrium is normal in size There is a trace to mild amount of mitral regurgitation There is no mitral valve stenosis. No aortic regurgitation is present. There is no aortic valve stenosis There is a trace to mild amount of tricuspid regurgitation There is mild pulmonary hypertension by echo Right ventricular systolic pressure is estimated to be elevated at 30- 40mmHg. Minimal pericardial effusion. MMode/2D Measurements \T\ Calculations RVDd: 3.5 cm LVIDd: 5.1 cm FS: 39.1 % Ao root diam: 3.2 cm IVSd: 0.97 cm LVIDs: 3.1 cm EDV(Teich): 126.1 ml Ao root area: 8.1 cm2 LVPWd: 0.96 cm ESV(Teich): 38.8 ml EF(Teich): 69.3 % Doppler Measurements \T\ Calculations MV E max arturo: MV dec slope: Ao V2 max: LV V1 max P.0 cm/sec 476.9 cm/sec2 170.2 cm/sec 8.2 mmHg MV A max arturo: MV dec time: Ao max PG: LV V1 max: 91.1 cm/sec 0.18 sec 11.6 mmHg 143.0 cm/sec MV E/A: 0.96 PA V2 max: PI end-d arturo: TR max arturo: 117.9 cm/sec 100.0 cm/sec 263.1 cm/sec PA max PG: TR max P.6 mmHg 27.8 mmHg Left Ventricle The left ventricle is grossly normal size. There is mild concentric left ventricular hypertrophy. The left ventricular ejection fraction is normal. Doppler measurements suggest pseudonormalized left ventricular relaxation, which is associated with grade II/IV or mild to moderate diastolic dysfunction. Wall motion cannot be accurately commented on, but no definite regional wall motion abnormalities noted. Right Ventricle The right ventricle is mildly dilated. The right ventricle appears to be hypertrophied. The right ventricular systolic function is normal. Atria The right atrium is normal in size. The left atrial size is normal. Interarterial septum not well visualized and not well dopplered. Cannot comment on ASD/PFO presence. Mitral Valve The mitral valve is grossly normal. There is no mitral valve stenosis. There is a trace to mild amount of mitral regurgitation. Aortic Valve The aortic valve is grossly normal. There is no aortic valve stenosis. No aortic regurgitation is present. Tricuspid Valve The tricuspid valve is not well visualized, but is grossly normal. There is no tricuspid stenosis. There is a trace to mild amount of tricuspid regurgitation. There is mild pulmonary hypertension by echo. Right ventricular systolic pressure is estimated to be elevated at 30-40mmHg. Pulmonic Valve The pulmonic valve is not well visualized. Great Vessels The aortic root is not well visualized but is probably normal size. The inferior vena cava appeared normal and decreased > 50% with respiration (RAP 5-10 mmHg). Effusions Minimal pericardial effusion. : BELKIS RADFORD > Belkis Radford
[2016-12-28] MEDS: LISINOPRIL 5 MG TABLET PO SCH (22:56)
[2016-12-28] MEDS: ATORVASTATIN CALCIUM 40 MG TABLET PO SCH (22:56)
[2016-12-28] MEDS: METOPROLOL SUCCINATE 25 MG TAB.SR.24H PO SCH (22:57)
[2016-12-29] MEDS: METRONIDAZOLE 500 MG/NS RTU 100 ML IV SCH ×4 (02:58→22:01)
[2016-12-29] MEDS: LANSOPRAZOLE 30 MG TAB.RAP.DR PO SCH (05:18)
[2016-12-29] MEDS: NORMAL SALINE 1000 ML 1,000 ML IV PRN ×2 (05:19→17:07)
[2016-12-29 07:42] LABS: ABSOLUTE BASOPHILS # (AUTO) 0.1 10^3/uL (0.0-0.2); ABSOLUTE EOSINOPHILS # (AUTO) 0.1 10^3/uL (0.0-0.6); ABSOLUTE LYMPHOCYTES (AUTO) 2.4 10^3/uL (0.5-4.7); ABSOLUTE MONOCYTES (AUTO) 0.6 10^3/uL (0.1-1.4); ABSOLUTE NEUT (AUTO) 3.6 10^3/uL (1.7-8.2); BASOPHILS % (AUTO) 0.8 % (0-2); EOSINOPHILS % (AUTO) 1.7 % (0-6); HEMATOCRIT 32.8 % (36.0-47.0); HGB HCT DIFFERENCE 0.2; LYMPHOCYTES % (AUTO) 35.6 % (13-45); MEAN CORPUSCULAR HGB CONC 33.4 g/dL (32.0-36.0); MEAN CORPUSCULAR VOLUME 99 fl (80-97); MONOCYTES % (AUTO) 9.4 % (3-13); RED BLOOD COUNT 3.32 10^6/uL (3.72-5.28); RED CELL DISTRIBUTION WIDTH 13.7 % (11.5-14.0); SEGMENTED NEUTROPHILS % (AUTO) 52.5 % (42-78); WHITE BLOOD COUNT 6.8 10^3/uL (4.0-10.5)
[2016-12-29 08:43] LABS: ANION GAP 8 (5-19); BLOOD UREA NITROGEN 6 mg/dL (7-20); CALCIUM 8.6 mg/dL (8.4-10.2); CARBON DIOXIDE 20 mmol/L (22-30); CHLORIDE 115 mmol/L (98-107); CREATININE RESULT 0.54 mg/dL (0.52-1.25); GLUCOSE 97 mg/dL (75-110); POTASSIUM 3.4 mmol/L (3.6-5.0); SODIUM 143.1 mmol/L (137-145)
[2016-12-29] MEDS: CIPROFLOXACIN 400 MG/D5W RTU 400 MG/200 ML RTUPB IV SCH ×2 (11:14→23:03)
[2016-12-29] MEDS: ENOXAPARIN SODIUM INJ 40 MG/0.4 ML DISP.SYRIN SUBCUT SCH (11:14)
[2016-12-29] MEDS: LISINOPRIL 5 MG TABLET PO SCH ×2 (11:15→21:59)
[2016-12-29] MEDS: ASPIRIN 81 MG TABLET, CHEWABLE PO SCH (11:15)
[2016-12-29] MEDS: CLOPIDOGREL BISULFATE 75 MG TABLET PO SCH (11:15)
[2016-12-29] MEDS: METOPROLOL SUCCINATE 25 MG TAB.SR.24H PO SCH ×2 (11:16→21:58)
--- NOTE | 2016-12-29 12:20 | PDOC PROGRESS REPORT ---
Subjective Progress Note for:: 12/29/16 Subjective:: Denies any chest pain Physical Exam Vital Signs: Temp Pulse Resp BP Pulse Ox 98.7 F 75 18 139/70 H 100 12/29/16 07:54 12/29/16 07:54 12/29/16 07:54 12/29/16 07:54 12/29/16 07:54 Intake & Output 12/28/16 12/29/16 12/30/16 06:59 06:59 06:59 Intake Total 1967 3717 Output Total 300 380 Balance 1667 3337 Weight 91 kg 92.2 kg General appearance: PRESENT: no acute distress Eye exam: PRESENT: conjunctiva pink. ABSENT: scleral icterus Mouth exam: PRESENT: moist, tongue midline Neck exam: ABSENT: JVD Respiratory exam: PRESENT: clear to auscultation francisco. ABSENT: rales, rhonchi, wheezes Cardiovascular exam: PRESENT: RRR. ABSENT: diastolic murmur, rubs, systolic murmur GI/Abdominal exam: PRESENT: normal bowel sounds, soft. ABSENT: distended, guarding, mass, organolmegaly, rebound, tenderness Extremities exam: ABSENT: calf tenderness, clubbing, pedal edema Neurological exam: PRESENT: alert, awake, oriented to person, oriented to place , oriented to time, oriented to situation, CN II-XII grossly intact. ABSENT: motor sensory deficit Psychiatric exam: PRESENT: appropriate affect Skin exam: PRESENT: dry, intact, warm. ABSENT: cyanosis, rash Results Laboratory Results: 12/29/16 04:35 12/29/16 04:35 12/29/16 12/29/16 04:35 04:35 WBC 6.8 RBC 3.32 L Hgb 11.0 L D Hct 32.8 L MCV 99 H MCH 33.0 MCHC 33.4 RDW 13.7 Plt Count 171 Seg Neutrophils % 52.5 Lymphocytes % 35.6 Monocytes % 9.4 Eosinophils % 1.7 Basophils % 0.8 Absolute Neutrophils 3.6 Absolute Lymphocytes 2.4 Absolute Monocytes 0.6 Absolute Eosinophils 0.1 Absolute Basophils 0.1 Sodium 143.1 Potassium 3.4 L Chloride 115 H Carbon Dioxide 20 L Anion Gap 8 BUN 6 L Creatinine 0.54 Est GFR ( Amer) > 60 Est GFR (Non-Af Amer) > 60 Glucose 97 Calcium 8.6 12/27/16 12/27/16 12/28/16 21:50 21:50 04:25 Creatine Kinase 481 H 537 H CK-MB (CK-2) 9.49 H Troponin I 0.323 12/28/16 12/28/16 04:25 11:27 Creatine Kinase CK-MB (CK-2) 9.85 H 9.69 H Troponin I 0.272 0.199 Impressions: Chest X-Ray 12/27/16 14:36 IMPRESSION: NO ACUTE RADIOGRAPHIC FINDING IN THE CHEST. Abdomen Ultrasound 12/28/16 00:00 IMPRESSION: Coarse echoes the liver concerning for fatty change. No focal mass or ascites. No gallstones identified. Assessment & Plan - Diagnosis (1) Hypotension Qualifiers: Hypotension type: other hypotension type Qualified Code(s): I95.89 - Other hypotension Is this a current diagnosis for this admission?: Yes Plan: Resolved with IV fluids. (2) Supraventricular tachycardia Is this a current diagnosis for this admission?: Yes Plan: Patient is rate controlled at this time. (3) Bipolar disorder Qualifiers: Active/Remission status: remission status unspecified Qualified Code(s): F31.9 - Bipolar disorder, unspecified Is this a current diagnosis for this admission?: Yes (4) Diarrhea Qualifiers: Diarrhea type: presumed infectious Qualified Code(s): A09 - Infectious gastroenteritis and colitis, unspecified Is this a current diagnosis for this admission?: Yes Plan: Has a positive C. difficile toxin. She is on Cipro and Flagyl we will continue with those for now. (5) Elevated troponin Is this a current diagnosis for this admission?: Yes Plan: Most likely secondary to the tachycardia. Troponins have been elevated but have been flat. She has been evaluated by cardiology. There was ST elevation on initial EKG. Cardiology to do stress test (6) PTSD (post-traumatic stress disorder) Is this a current diagnosis for this admission?: Yes - Time Time Spent with patient: 25-34 minutes - Inpatient Certification Medical Necessity: Need Close Monitoring Due to Risk of Patient Decompensation, Need for IV Antibiotics
--- NOTE | 2016-12-29 13:05 | DRAGON STRESS TEST REPORT ---
INTRAVENOUS LEXISCAN CARDIOLITE STRESS TEST USING SINGLE PHOTON EMMISION COMPUTERIZED TOMOGRAPHIC. DATE OF PROCEDURE: December 29, 2016 INDICATION : STEMI CARDIAC RISK FACTORS: Hypertension, dyslipidemia RESTING EKG:Sinus rhythm, no baseline ST-T wave changes STRESS EKG: No significant changes noted with LexiScan bolus REASON FOR TERMINATION: Protocol. PROCEDURE REPORT: Baseline heart rate 74 beats per minute with blood pressure of 131/90. Patient had no significant complaints. Heart rate at 2 minutes post bolus 95 with a blood pressure of 130/87 3 minutes post bolus heart rate 99 with blood pressure of 133/86. No significant EKG changes were noted. Patient had no significant complaints during the procedure or postprocedure. Patient injected with Aminophyllin 75 mg at 3 minutes or later after Lexiscan bolus. CONCLUSIONS: Normal EKG and hemodynamic response to IV LexiScan. NUCLEAR DATA: At rest the patient was given 14.85 millicuries of technetium 99 sestamibi injected intravenously. As per protocol rest gated SPECT images were obtained. Subsequently the patient was given intravenous LexiScan at a dose of 0.4 mg in 5 mL intravenously, followed by flush with normal saline. Subsequently the stress dose of 43.5 millicuries of technetium 99 sestamibi was injected intravenously. As per protocol stress gated images were obtained. NUCLEAR INTERPRETATION: Both raw and processed data were used for interpretation. Visual, qualitative, computer-generated quantitative data was used. There was good myocardial uptake of technetium compound. Motion artifact and soft tissue attenuations were noted. Increased visceral uptake was noted. No definitive areas of transient perfusion defect noted. Mild fixed perfusion defect noted in the mid inferior wall consistent with mild scar. EKG gated imaging showed LV EF at 64 %, rest and stress gated EF similar visually. T. I D. ratio was 1.10. Lung heart ratio noted to be within normal limits 0.33. No significant extracardiac and abnormal radiotracer activities were noted. RV free wall uptake was noted to be Mildly increased. IMPRESSION: Also refer to comments under nuclear interpretation. Also test results needs to be interpreted in the context of pretest probability. 1. There is no definitive scintigraphic evidence of LexiScan induced myocardial ischemia. 2. Mild fixed perfusion defect noted in the mid inferior wall consistent with mild scar. 3. EKG gated imaging shows left ventricular ejection fraction of approximately 64%. 4. Clinical correlation requested as occasionally single vessel disease or balanced ischemia could be missed. In approximately 10% of the cases Lexiscan may not cause adequate vasodilatory stress. RECOMMENDATIONS: Aggressive risk factor modification, medical therapy. Clinical correlation with echocardiogram derived ejection fraction. Inability to exercise by itself can lead to increased cardiovascular event risks. Consider cardiology consultation and or follow-up if clinically indicated. I AM AVAILABLE FOR CARDIOLOGY CONSULTATION AND FOLLOWUP IF REQUESTED BY PMD Belkis Buitrago M.D., NICK Bindery Helper jammer hooker, Board certified in cardiovascular diseases, Nuclear cardiology, Echocardiography Cardiac CT and cardiac MRI Ph. [phone] [facility]
[2016-12-29] MEDS ORDERED: AMINOPHYLLINE INJ/PF 250 MG/10 ML SDV IV ONE (14:30)
[2016-12-29] MEDS ORDERED: REGADENOSON INJ 0.4 MG/5 ML DISP.SYRIN IV ONE (14:30)
[2016-12-29] MEDS: ATORVASTATIN CALCIUM 40 MG TABLET PO SCH (21:58)
[2016-12-30] MEDS: METRONIDAZOLE 500 MG/NS RTU 100 ML IV SCH (03:35)
[2016-12-30] MEDS: NORMAL SALINE 1000 ML 1,000 ML IV PRN (03:46)
[2016-12-30 05:20] LABS: ABSOLUTE EOSINOPHILS # (AUTO) 0.1 10^3/uL (0.0-0.6); ABSOLUTE LYMPHOCYTES (AUTO) 2.1 10^3/uL (0.5-4.7); ABSOLUTE MONOCYTES (AUTO) 0.6 10^3/uL (0.1-1.4); ABSOLUTE NEUT (AUTO) 4.7 10^3/uL (1.7-8.2); BASOPHILS % (AUTO) 0.7 % (0-2); EOSINOPHILS % (AUTO) 1.4 % (0-6); HEMATOCRIT 31.5 % (36.0-47.0); HEMOGLOBIN 10.7 g/dL (12.0-15.5); HGB HCT DIFFERENCE 0.6; LYMPHOCYTES % (AUTO) 27.4 % (13-45); MEAN CORPUSCULAR HEMOGLOBIN 33.4 pg (27.0-33.4); MEAN CORPUSCULAR HGB CONC 33.9 g/dL (32.0-36.0); MEAN CORPUSCULAR VOLUME 99 fl (80-97); MONOCYTES % (AUTO) 8.2 % (3-13); RED BLOOD COUNT 3.19 10^6/uL (3.72-5.28); RED CELL DISTRIBUTION WIDTH 14.4 % (11.5-14.0); SEGMENTED NEUTROPHILS % (AUTO) 62.3 % (42-78); WHITE BLOOD COUNT 7.5 10^3/uL (4.0-10.5)
[2016-12-30 05:36] LABS: ANION GAP 9 (5-19); BLOOD UREA NITROGEN 4 mg/dL (7-20); CALCIUM 8.7 mg/dL (8.4-10.2); CARBON DIOXIDE 23 mmol/L (22-30); CHLORIDE 111 mmol/L (98-107); GLUCOSE 99 mg/dL (75-110); POTASSIUM 3.2 mmol/L (3.6-5.0)
[2016-12-30] MEDS: LANSOPRAZOLE 30 MG TAB.RAP.DR PO SCH (05:38)
[2016-12-30] MEDS ORDERED: POTASSI CL 20 MEQ/50 ML RIDER 20 MEQ/50 ML RTUPB IV ONE (07:30)
[2016-12-30] MEDS ORDERED: ONDANSETRON HCL INJ/PF 4 MG/2 ML SDV IV PRN (08:00)
[2016-12-30] MEDS ORDERED: ALBUTEROL SULFATE 0.083% NEB 2.5 MG/3 ML AMPUL NEB PRN (08:56)
[2016-12-30] MEDS ORDERED: POTASSIUM CHLORIDE 10 MEQ TABLET.SA PO SCH (10:00)
[2016-12-30] MEDS: CLOPIDOGREL BISULFATE 75 MG TABLET PO SCH (10:47)
[2016-12-30] MEDS: ENOXAPARIN SODIUM INJ 40 MG/0.4 ML DISP.SYRIN SUBCUT SCH (10:48)
[2016-12-30] MEDS: METOPROLOL SUCCINATE 25 MG TAB.SR.24H PO SCH (10:48)
[2016-12-30] MEDS: LISINOPRIL 5 MG TABLET PO SCH (10:49)
[2016-12-30] MEDS: ASPIRIN 81 MG TABLET, CHEWABLE PO SCH (10:49)
--- NOTE | 2016-12-30 12:21 | PDOC PROGRESS REPORT ---
Subjective Progress Note for:: 12/29/16 Subjective:: Patient seems to be doing better with gradual improvement. Pt is denying any chest arm or neck discomfort. Patient denying any PND, orthopnea. Patient denied any sustained palpitations, dizziness, syncope, near syncope. Patient denying any fever chills. Patient denying any other significant discomfort. Patient is maintaining sinus rhythm. Patient on questioning admitted to history of snoring, difficulty falling asleep, staying asleep, daytime fatigue and somnolence. Nuclear stress test procedure was explained to the patient in detail. Risks benefits were discussed and informed consent was obtained. Alternatives were discussed. Patient informed that based on risk factors, physical exam, lab data findings and symptoms there is at least intermediate probability of underlying CAD. Nuclear stress test procedure was therefore scheduled. Review of systems: Rest review of systems negative. Medications: Medications have been reviewed. Physical Exam Vital Signs: Temp Pulse Resp BP Pulse Ox 98.3 F 78 17 149/96 H 100 12/29/16 11:41 12/29/16 11:41 12/29/16 11:41 12/29/16 11:41 12/29/16 11:41 Intake & Output 12/28/16 12/29/16 12/30/16 06:59 06:59 06:59 Intake Total 1967 3717 100 Output Total 300 380 Balance 1667 3337 100 Weight 91 kg 92.2 kg Exam: GENERAL: well-nourished and in no acute distress. Alert and oriented x3 HEAD: Atraumatic, normocephalic. EYES: Pupils equal round and reactive to light, extraocular movements intact, sclera anicteric, conjunctiva are normal. ENT: TMs normal, nares patent, oropharynx clear without exudates. Moist mucous membranes. No oral ulcerations or bleeding gums noted NECK: supple without lymphadenopathy. Trachea is central. No cervical or axillary lymphadenopathy noted. Carotids are 2+, JVD WNL LUNGS: Respiration seems nonlabored, no significant accessory muscle action noted. Breath sounds clear to auscultation bilaterally and equal noted. No wheezes rales or rhonchi noted. No significant dullness noted on percussion. CHEST: Palpation of the chest wall shows no significant chest wall tenderness. No other significant abnormalities noted. 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 ABDOMEN: Soft, no significant tenderness appreciated, normoactive bowel sounds. No guarding, no rebound. No rigidity noted . No masses appreciated. EXTREMITIES: Pedal pulses are 1-2+, no calf tenderness noted. No clubbing or cyanosis.trace to 1+ pedal edema noted NEUROLOGICAL: Focused neurological exam showed no significant neurologic deficit. Normal speech, no focal weakness appreciated. PSYCH: Normal mood, normal affect. Judgment and insight within normal limits. SKIN: No significant ecchymosis, rash, ulcerations or signs of pruritus noted. MUSCULOSKELETAL EXAM: No significant joint swelling noted. Results Laboratory Results: 12/29/16 04:35 12/29/16 04:35 12/29/16 12/29/16 04:35 04:35 WBC 6.8 RBC 3.32 L Hgb 11.0 L D Hct 32.8 L MCV 99 H MCH 33.0 MCHC 33.4 RDW 13.7 Plt Count 171 Seg Neutrophils % 52.5 Lymphocytes % 35.6 Monocytes % 9.4 Eosinophils % 1.7 Basophils % 0.8 Absolute Neutrophils 3.6 Absolute Lymphocytes 2.4 Absolute Monocytes 0.6 Absolute Eosinophils 0.1 Absolute Basophils 0.1 Sodium 143.1 Potassium 3.4 L Chloride 115 H Carbon Dioxide 20 L Anion Gap 8 BUN 6 L Creatinine 0.54 Est GFR ( Amer) > 60 Est GFR (Non-Af Amer) > 60 Glucose 97 Calcium 8.6 12/27/16 12/27/16 12/28/16 21:50 21:50 04:25 Creatine Kinase 481 H 537 H CK-MB (CK-2) 9.49 H Troponin I 0.323 12/28/16 12/28/16 04:25 11:27 Creatine Kinase CK-MB (CK-2) 9.85 H 9.69 H Troponin I 0.272 0.199 EKG Comments: Telemetry strips shows sinus rhythm, no sustained tachycardia or bradycardia arrhythmias noted. Impressions: Chest X-Ray 12/27/16 14:36 IMPRESSION: NO ACUTE RADIOGRAPHIC FINDING IN THE CHEST. Abdomen Ultrasound 12/28/16 00:00 IMPRESSION: Coarse echoes the liver concerning for fatty change. No focal mass or ascites. No gallstones identified. Assessment & Plan - Diagnosis (1) ST elevation (STEMI) myocardial infarction Qualifiers: Involved coronary artery: unspecified coronary artery Qualified Code(s): I21.3 - ST elevation (STEMI) myocardial infarction of unspecified site Is this a current diagnosis for this admission?: Yes (2) Diarrhea Qualifiers: Diarrhea type: presumed infectious Qualified Code(s): A09 - Infectious gastroenteritis and colitis, unspecified Is this a current diagnosis for this admission?: Yes (3) Elevated troponin Is this a current diagnosis for this admission?: Yes (4) Bipolar disorder Qualifiers: Active/Remission status: remission status unspecified Qualified Code(s): F31.9 - Bipolar disorder, unspecified Is this a current diagnosis for this admission?: Yes (6) Supraventricular tachycardia Is this a current diagnosis for this admission?: Yes (7) Sleep-disordered breathing Is this a current diagnosis for this admission?: Yes (8) Hypokalemia Is this a current diagnosis for this admission?: Yes - Notes Notes: ST segment elevation myocardial infarction: Nuclear stress test performed today. Results discussed. Initial EKG shows ST segment elevation myocardial infarction. Most likely brought on by supraventricular tachycardia. Currently patient stable. Nuclear stress was negative for any significant ischemia. A small area of fixed defect noted in the mid inferior wall. These results were discussed with the patient. Will optimize medical therapy by starting statins, beta blockers and ARAM inhibitors/ARB. Continue with aspirin and Plavix therapy. 2D echo results shows normal LVEF. This was discussed with the patient. Would recommend dual antiplatelet therapy for at least a month. Diarrhea: Being evaluated by the hospitalist. Elevated troponin I: Most likely related to non-ST segment elevation myocardial infarction brought on by tachycardia. Nuclear images did show a fixed defect indicative of myocardial infarction. Supraventricular tachycardia: Continue Cardizem for the time being. Patient tolerating beta-blockers. Hypokalemia: Continue with replacement therapy. Sleep disordered breathing: Patient advised to lose weight and schedule a sleep study as an outpatient. Discussed increased risk of stroke and heart attack with untreated sleep apnea. - Time Time with patient: Greater than 35 minutes - CODE STATUS was discussed, patient remains full code. Surrogate decision-maker unchanged. Multiple medical problems were addressed. More than 50% of the time spent coordinating care, discussing management plans with involved caregivers. Management plans discussed with involved personnels. Medical decision making was of high complexity, patient's has multiple comorbidities. Patient was seen multiple times. Total time exceeds 40 minutes. In the morning nuclear stress test procedure, risks benefits, alternatives were discussed. Patient seen during the stress test. Patient also seen after stress test when results were discussed with the patient in detail. Patient's questions were answered. Nuclear stress test results were discussed with the patient. Patient was informed that no definitive evidence of pharmacologic stress-induced ischemia noted. Small area of mid inferior wall fixed defects were noted. Patient informed that occasionally worse disease could be missed. However based on the current study results, would recommend aggressive risk factor modification and medical therapy. Right now, recommendations are for aggressive risk factor modification and medical management.
--- NOTE | 2016-12-30 12:32 | PDOC PROGRESS REPORT ---
Subjective Progress Note for:: 12/30/16 Subjective:: Patient seems to be doing better with gradual improvement. Pt is denying any chest arm or neck discomfort. Patient denying any PND, orthopnea. Patient denied any sustained palpitations, dizziness, syncope, near syncope. Patient denying any fever chills. Patient denying any other significant discomfort. Patient is maintaining sinus rhythm. Patient on questioning admitted to history of snoring, difficulty falling asleep, staying asleep, daytime fatigue and somnolence. Results of nuclear stress test discussed again. Patient questions were answered. Review of systems: Rest review of systems negative. Medications: Medications have been reviewed. Physical Exam Vital Signs: Temp Pulse Resp BP Pulse Ox 99.0 F 73 16 162/72 H 100 12/30/16 07:10 12/30/16 09:41 12/30/16 09:41 12/30/16 07:10 12/30/16 09:41 Intake & Output 12/29/16 12/30/16 12/31/16 06:59 06:59 06:59 Intake Total 3717 4022 Output Total 380 Balance 3337 4022 Weight 92.2 kg 90.2 kg Exam: GENERAL: well-nourished and in no acute distress. Alert and oriented x3 HEAD: Atraumatic, normocephalic. EYES: Pupils equal round and reactive to light, extraocular movements intact, sclera anicteric, conjunctiva are normal. ENT: TMs normal, nares patent, oropharynx clear without exudates. Moist mucous membranes. No oral ulcerations or bleeding gums noted NECK: supple without lymphadenopathy. Trachea is central. No cervical or axillary lymphadenopathy noted. Carotids are 2+, JVD WNL LUNGS: Respiration seems nonlabored, no significant accessory muscle action noted. Breath sounds clear to auscultation bilaterally and equal noted. No wheezes rales or rhonchi noted. No significant dullness noted on percussion. CHEST: Palpation of the chest wall shows no significant chest wall tenderness. No other significant abnormalities noted. 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 ABDOMEN: Soft, no significant tenderness appreciated, normoactive bowel sounds. No guarding, no rebound. No rigidity noted . No masses appreciated. EXTREMITIES: Pedal pulses are 1-2+, no calf tenderness noted. No clubbing or cyanosis.trace to 1+ pedal edema noted NEUROLOGICAL: Focused neurological exam showed no significant neurologic deficit. Normal speech, no focal weakness appreciated. PSYCH: Normal mood, normal affect. Judgment and insight within normal limits. SKIN: No significant ecchymosis, rash, ulcerations or signs of pruritus noted. MUSCULOSKELETAL EXAM: No significant joint swelling noted. Results Laboratory Results: 12/30/16 04:27 12/30/16 04:27 12/30/16 12/30/16 04:27 04:27 WBC 7.5 RBC 3.19 L Hgb 10.7 L Hct 31.5 L MCV 99 H MCH 33.4 MCHC 33.9 RDW 14.4 H Plt Count 171 Seg Neutrophils % 62.3 Lymphocytes % 27.4 Monocytes % 8.2 Eosinophils % 1.4 Basophils % 0.7 Absolute Neutrophils 4.7 Absolute Lymphocytes 2.1 Absolute Monocytes 0.6 Absolute Eosinophils 0.1 Absolute Basophils 0.0 Sodium 143.0 Potassium 3.2 L Chloride 111 H Carbon Dioxide 23 Anion Gap 9 BUN 4 L Creatinine 0.50 L Est GFR ( Amer) > 60 Est GFR (Non-Af Amer) > 60 Glucose 99 Calcium 8.7 12/28/16 04:15 Stool - Stool - Final 12/27/16 12/27/16 12/28/16 21:50 21:50 04:25 Creatine Kinase 481 H 537 H CK-MB (CK-2) 9.49 H Troponin I 0.323 12/28/16 12/28/16 04:25 11:27 Creatine Kinase CK-MB (CK-2) 9.85 H 9.69 H Troponin I 0.272 0.199 EKG Comments: Telemetry strips shows sinus rhythm without any sustained tachycardia or bradycardia arrhythmias. Impressions: Chest X-Ray 12/27/16 14:36 IMPRESSION: NO ACUTE RADIOGRAPHIC FINDING IN THE CHEST. Abdomen Ultrasound 12/28/16 00:00 IMPRESSION: Coarse echoes the liver concerning for fatty change. No focal mass or ascites. No gallstones identified. Assessment & Plan - Diagnosis (1) ST elevation (STEMI) myocardial infarction Qualifiers: Involved coronary artery: unspecified coronary artery Qualified Code(s): I21.3 - ST elevation (STEMI) myocardial infarction of unspecified site Is this a current diagnosis for this admission?: Yes (2) Diarrhea Qualifiers: Diarrhea type: presumed infectious Qualified Code(s): A09 - Infectious gastroenteritis and colitis, unspecified Is this a current diagnosis for this admission?: Yes (3) Elevated troponin Is this a current diagnosis for this admission?: Yes (4) Bipolar disorder Qualifiers: Active/Remission status: remission status unspecified Qualified Code(s): F31.9 - Bipolar disorder, unspecified Is this a current diagnosis for this admission?: Yes (6) Supraventricular tachycardia Is this a current diagnosis for this admission?: Yes (7) Sleep-disordered breathing Is this a current diagnosis for this admission?: Yes (8) Hypokalemia Is this a current diagnosis for this admission?: Yes - Notes Notes: ST segment elevation myocardial infarction: Nuclear stress test Results discussed. Patient sustained STEMI inferior wall. Most likely brought on by supraventricular tachycardia. Currently patient stable. Nuclear stress was negative for any significant ischemia. A small area of fixed defect noted in the mid inferior wall. These results were discussed with the patient. Will optimize medical therapy by starting statins, beta blockers and ARAM inhibitors/ ARB. Continue with aspirin and Plavix therapy. 2D echo results shows normal LVEF. This was discussed with the patient. Would recommend dual antiplatelet therapy for at least a month. Patient blood pressure readings noted to be high , therefore will increase lisinopril dose. Diarrhea: Being evaluated by the hospitalist. Elevated troponin I: Most likely related to non-ST segment elevation myocardial infarction brought on by tachycardia. Nuclear images did show a fixed defect indicative of myocardial infarction. Supraventricular tachycardia: Will discontinue Cardizem. Patient tolerating beta-blockers. Hypokalemia: Continue with replacement therapy. Sleep disordered breathing: Patient advised to lose weight and schedule a sleep study as an outpatient. Discussed increased risk of stroke and heart attack with untreated sleep apnea. - Time Time with patient: Greater than 35 minutes - CODE STATUS was discussed, patient remains full code. Surrogate decision-maker unchanged. Multiple medical problems were addressed. More than 50% of the time spent coordinating care, discussing management plans with involved caregivers. Management plans discussed with involved personnels. Medical decision making was of moderate to high complexity, patient's has multiple comorbidities. Medications reviewed and adjusted accordingly: Yes
[2016-12-30 13:20] VITALS: BP 153/81
[2016-12-30] MEDS ORDERED: METRONIDAZOLE 500 MG TABLET PO SCH (14:00)
--- NOTE | 2016-12-30 14:41 | PDOC DISCHARGE SUMMARY ---
General - Admit/Disc Date/PCP Admission Date/Primary Care Provider: 12/27/16 18:20 Discharge Date: 12/30/16 - Discharge Diagnosis (1) Diarrhea Is this a current diagnosis for this admission?: Yes Summary: Secondary to C. difficile colitis. (2) Hypotension Is this a current diagnosis for this admission?: Yes Summary: Most likely secondary to the patient's underlying diarrhea and volume depletion. It has resolved. (3) Elevated troponin Is this a current diagnosis for this admission?: Yes Summary: Patient's initial EKG showed ST segment elevation which quickly resolved. Neligh the patient has suffered a STEMI. The patient had troponins that were positive. She was evaluated by cardiology who performed a Cardiolite stress test. There was no evidence for reversible ischemia. This most likely related to the SVT and hypotension. She is being treated with aspirin, beta-kerry, statin. (4) Supraventricular tachycardia Is this a current diagnosis for this admission?: Yes Summary: Patient presented with SVT. She was initially hypotensive. Patient also was noted to have elevated troponins most likely secondary to SVT. (5) Bipolar disorder Is this a current diagnosis for this admission?: Yes (6) PTSD (post-traumatic stress disorder) Is this a current diagnosis for this admission?: Yes - Additional Information Resuscitation Status: Full Code Discharge Diet: Cardiac Discharge Activity: Activity As Tolerated Home Medications: Aspirin [Aspirin EC] 81 mg PO DAILY 12/28/16 Naproxen Sodium [Aleve] 220 mg PO BIDP PRN 12/28/16 Atorvastatin Calcium [Lipitor 40 mg Tablet] 40 mg PO QHS #30 tablet 12/30/16 Clopidogrel Bisulfate [Plavix 75 mg Tablet] 75 mg PO DAILY #30 tablet 12/30/16 Lisinopril [Prinivil 5 mg Tablet] 5 mg PO Q12 #60 tablet 12/30/16 Metoprolol Succinate [Toprol Xl 25 mg Tab.sr] 25 mg PO Q12 #60 tab.sr.24h Metronidazole [Flagyl 500 mg Tablet] 500 mg PO Q8 #20 tablet 12/30/16 Potassium Chloride [Klor-Con 10 Meq Tablet.sa] 10 meq PO Q12 #60 tablet.sa 12/30 History of Present Illness History of Present Illness: NEDRA MEYER is a 66 year old female who presented with tachycardia and palpitations for several days prior to presentation. Patient had diarrhea for 4 days previous with dark watery stool. The patient also has felt lightheaded and was noted to be hypotensive and tachycardic with heart rate of 160 when she presented. This responded to IV fluids. Patient also was noted to have elevated troponin as admitted for further workup. Hospital Course Hospital Course: 66-year-old female who presented with palpitations and was found to have SVT along with hypotension and diarrhea secondary to C. difficile colitis. Patient was treated with IV fluids and her hypotension and SVT improved. The patient was treated for her C. difficile colitis with Flagyl and her diarrhea resolved. Because of positive troponins cardiology was consulted. The patient's initial presenting EKG did show ST segment elevation in light of her positive troponin diagnosed her with a STEMI. Patient however did not have any chest pain associated with this. She underwent a Cardiolite stress test which showed no evidence for reversible ischemia but a small fixed defect. Patient is being treated with aspirin, beta kerry, statin. Cardiology also recommended an outpatient sleep study as that may be contributing to some of her problems. On the day of discharge she was having no diarrhea and was tolerating her diet well with no chest discomfort. Patient will follow up with her primary care in the next 2 weeks. She will follow-up as an outpatient sleep study with Dr. Buitrago. She also request follow-up psychiatry for her bipolar disorder. Physical Exam Vital Signs: Temp Pulse Resp BP Pulse Ox 99.1 F 83 18 153/81 H 96 12/30/16 11:21 12/30/16 11:21 12/30/16 11:21 12/30/16 11:21 12/30/16 11:21 Intake & Output 12/29/16 12/30/16 12/31/16 06:59 06:59 06:59 Intake Total 3717 4022 437 Output Total 380 Balance 3337 4022 437 Weight 92.2 kg 90.2 kg General appearance: PRESENT: no acute distress Eye exam: PRESENT: conjunctiva pink. ABSENT: scleral icterus Mouth exam: PRESENT: moist, tongue midline Neck exam: ABSENT: JVD Respiratory exam: PRESENT: clear to auscultation [place]. ABSENT: rales, rhonchi, wheezes Cardiovascular exam: PRESENT: RRR. ABSENT: diastolic murmur, rubs, systolic murmur GI/Abdominal exam: PRESENT: normal bowel sounds, soft. ABSENT: distended, guarding, mass, organolmegaly, rebound, tenderness Extremities exam: ABSENT: calf tenderness, clubbing, pedal edema Neurological exam: PRESENT: alert, awake, oriented to person, oriented to place , oriented to time, oriented to situation, CN II-XII grossly intact. ABSENT: motor sensory deficit Psychiatric exam: PRESENT: appropriate affect Skin exam: PRESENT: dry, intact, warm. ABSENT: cyanosis, rash Results Laboratory Results: 12/30/16 04:27 12/30/16 04:27 12/30/16 12/30/16 04:27 04:27 WBC 7.5 RBC 3.19 L Hgb 10.7 L Hct 31.5 L MCV 99 H MCH 33.4 MCHC 33.9 RDW 14.4 H Plt Count 171 Seg Neutrophils % 62.3 Lymphocytes % 27.4 Monocytes % 8.2 Eosinophils % 1.4 Basophils % 0.7 Absolute Neutrophils 4.7 Absolute Lymphocytes 2.1 Absolute Monocytes 0.6 Absolute Eosinophils 0.1 Absolute Basophils 0.0 Sodium 143.0 Potassium 3.2 L Chloride 111 H Carbon Dioxide 23 Anion Gap 9 BUN 4 L Creatinine 0.50 L Est GFR ( Amer) > 60 Est GFR (Non-Af Amer) > 60 Glucose 99 Calcium 8.7 12/28/16 04:15 Stool - Stool - Final 12/27/16 12/27/16 12/28/16 21:50 21:50 04:25 Creatine Kinase 481 H 537 H CK-MB (CK-2) 9.49 H Troponin I 0.323 12/28/16 12/28/16 04:25 11:27 Creatine Kinase CK-MB (CK-2) 9.85 H 9.69 H Troponin I 0.272 0.199 Impressions: Chest X-Ray 12/27/16 14:36 IMPRESSION: NO ACUTE RADIOGRAPHIC FINDING IN THE CHEST. Abdomen Ultrasound 12/28/16 00:00 IMPRESSION: Coarse echoes the liver concerning for fatty change. No focal mass or ascites. No gallstones identified. Qualifiers PATEINT BEING DISCHARGED WITH ANY OF THE FOLLOWING DIAGNOSIS?: No Plan Discharge Plan: Discharged home in stable condition. Will follow with primary care in 2 weeks. Follow-up with cardiology for sleep study in 1 week. Follow with psychiatry in 1-2 weeks. Time Spent: Greater than 30 Minutes
[2016-12-30] MEDS ORDERED: LISINOPRIL 5 MG TABLET PO SCH (22:00)
[2016-12-31] MEDS ORDERED: LANSOPRAZOLE 30 MG TAB.RAP.DR PO SCH (06:00)
== END 2016-12-30 15:39 | disposition home or self-care (01) | DRG 281 ==
LOC: ER 14:11 → UNDOADMIN 17:50 → EH 17:50 → 3N 21:15
PROVIDERS: ADMIT Family Medicine; ATTEND Family Medicine
DX: I21.19 ST elevation (STEMI) myocardial infarction involving other coronary artery of inferior wall (principal); I47.1 Supraventricular tachycardia; A04.7 Enterocolitis due to Clostridium difficile; E87.6 Hypokalemia; F31.9 Bipolar disorder, unspecified; F43.10 Post-traumatic stress disorder, unspecified; Z79.82 Long term (current) use of aspirin; Z79.899 Other long term (current) drug therapy; Z79.02 Long term (current) use of antithrombotics/antiplatelets; F17.210 Nicotine dependence, cigarettes, uncomplicated
CPT/HCPCS: 36415; 71010; 76700; 78452; 80048; 80053; 80074; 80307; 81001; 82550; 82553; 82803; 83605; 83735; 84100; 84443; 84484; 85025; 85610; 87040; 87045; 87086; 87205; 87493; 93005; 93010; 93017; 93306; 93976; 94640; 99291; A9500; J0280; J0744; J1650; J2785; J3475; J3480; J7030; J7120; Q9969

== ENCOUNTER 2017-03-08 11:45 | Emergency (ER) | payer OTHER ==
[2017-03-08] MEDS ORDERED: ASPIRIN 81 MG TABLET, CHEWABLE PO ONE (12:06)
[2017-03-08 12:18] LABS: ABSOLUTE BASOPHILS # (AUTO) 0.1 10^3/uL (0.0-0.2); ABSOLUTE EOSINOPHILS # (AUTO) 0.1 10^3/uL (0.0-0.6); ABSOLUTE LYMPHOCYTES (AUTO) 2.6 10^3/uL (0.5-4.7); ABSOLUTE MONOCYTES (AUTO) 0.7 10^3/uL (0.1-1.4); ABSOLUTE NEUT (AUTO) 4.1 10^3/uL (1.7-8.2); BASOPHILS % (AUTO) 1.2 % (0-2); EOSINOPHILS % (AUTO) 1.6 % (0-6); HEMATOCRIT 41.2 % (36.0-47.0); HGB HCT DIFFERENCE 0.8; LYMPHOCYTES % (AUTO) 34.5 % (13-45); MEAN CORPUSCULAR HEMOGLOBIN 33.6 pg (27.0-33.4); MEAN CORPUSCULAR HGB CONC 33.9 g/dL (32.0-36.0); MEAN CORPUSCULAR VOLUME 99 fl (80-97); MONOCYTES % (AUTO) 9.3 % (3-13); RED BLOOD COUNT 4.16 10^6/uL (3.72-5.28); RED CELL DISTRIBUTION WIDTH 14.3 % (11.5-14.0); SEGMENTED NEUTROPHILS % (AUTO) 53.4 % (42-78); WHITE BLOOD COUNT 7.6 10^3/uL (4.0-10.5)
[2017-03-08 12:39] LABS: ALANINE AMINOTRANSFERASE 102 U/L (9-52); ALBUMIN 4.6 g/dL (3.5-5.0); ALKALINE PHOSPHATASE 80 U/L (38-126); ANION GAP 15 (5-19); ASPARTATE AMINO TRANSFERASE 83 U/L (14-36); BILIRUBIN,DIRECT 0.3 mg/dL (0.0-0.4); BILIRUBIN,TOTAL 0.7 mg/dL (0.2-1.3); BLOOD UREA NITROGEN 15 mg/dL (7-20); CALCIUM 10.4 mg/dL (8.4-10.2); CARBON DIOXIDE 17 mmol/L (22-30); CHLORIDE 111 mmol/L (98-107); CREATINE KINASE 197 U/L (30-135); CREATININE RESULT 0.67 mg/dL (0.52-1.25); GLUCOSE 93 mg/dL (75-110); POTASSIUM 4.5 mmol/L (3.6-5.0); SODIUM 142.8 mmol/L (137-145); TOTAL PROTEIN 7.9 g/dL (6.3-8.2)
[2017-03-08 12:43] LABS: CREATINE KINASE MB 2.77 ng/mL (<4.55)
[2017-03-08 12:44] LABS: TROPONIN I < 0.012 ng/mL
--- NOTE | 2017-03-08 12:48 | ER Document Report ---
ED General - General Chief Complaint: Palpitations Stated Complaint: CHEST PAIN Time Seen by Provider: 03/08/17 12:34 Mode of Arrival: Medic Information source: Patient, Emergency Med Personnel TRAVEL OUTSIDE OF THE [place] IN LAST 30 DAYS: No - HPI Patient complains to provider of: palpitations Onset: This morning Onset/Duration: Gradual Quality of pain: No pain Associated symptoms: None Exacerbated by: Denies Relieved by: Denies Similar symptoms previously: Yes Recently seen / treated by doctor: No Notes: Patient is a 66-year-old female with history of STEMI in December. At that time she was noted to be in SVT. She had a negative stress test at that time. Patient reports since then she is always felt short of breath. This morning, patient noted that she was feeling palpitations. She does not know what her heart rate was. She took an extra metoprolol and drink a lot of water. She also did a Valsalva maneuver. Patient states her palpitations resolved when EMS got there. No chest pain. No change at her baseline shortness of breath. This is her first episode of palpitations since her hospital discharge in December. - Related Data Allergies/Adverse Reactions: No Known Allergies Allergy (Verified 04/17/16 03:58) Past Medical History - General Information source: Patient, [facility] Records - Social History Smoking Status: Unknown if Ever Smoked Chew tobacco use (# tins/day): No Frequency of alcohol use: None Drug Abuse: None Family History: CAD, CVA, Other - Cancer of the mouth Psychiatric Medical History: Reports: Hx Bipolar Disorder, Hx Depression, Hx Post Traumatic Stress Disorder Past Surgical History: Reports: Hx Breast Surgery, Hx Section, Hx Orthopedic Surgery - L knee, R foot, Other - Lumpectomy - Immunizations Hx Diphtheria, Pertussis, Tetanus Vaccination: Yes Review of Systems - Review of Systems Cardiovascular: Palpitations Respiratory: No symptoms reported -: Yes All other systems reviewed and negative Physical Exam - Vital signs Vitals: Resp Pulse Ox 16 99 03/08/17 11:57 03/08/17 11:57 Interpretation: Normal - General General appearance: Appears well, Alert - HEENT Head: Normocephalic, Atraumatic Eyes: Normal Pupils: PERRL - Respiratory Respiratory status: No respiratory distress Chest status: Nontender Breath sounds: Normal Chest palpation: Normal - Cardiovascular Rhythm: Regular, Other - Normal heart rate Heart sounds: Normal auscultation Murmur: No - Abdominal Inspection: Normal Distension: No distension Bowel sounds: Normal Tenderness: Nontender Organomegaly: No organomegaly - Back Back: Normal, Nontender - Extremities General upper extremity: Normal inspection, Nontender, Normal color, Normal ROM , Normal temperature General lower extremity: Normal inspection, Nontender, Normal color, Normal ROM , Normal temperature, Normal weight bearing. No: Matthew's sign - Neurological Neuro grossly intact: Yes Cognition: Normal Orientation: AAOx4 [place] Coma Scale Eye Opening: Spontaneous [place] Coma Scale Verbal: Oriented [place] Coma Scale Motor: Obeys Commands [place] Coma Scale Total: 15 Speech: Normal Motor strength normal: LUE, RUE, LLE, RLE Sensory: Normal - Psychological Associated symptoms: Normal affect, Normal mood - Skin Skin Temperature: Warm Skin Moisture: Dry Skin Color: Normal Course - Re-evaluation Re-evalutation: 03/08/17 13:24 Emergency department workup has been unremarkable. Patient has not had any chest pain since onset of her symptoms. It was only palpitations. Her heart rate has been in the normal range since she has been put on the monitor. Enzymes are negative. EKG is normal sinus rhythm. There is no indication for admission. Results were discussed with patient with need for cardiology follow- up. - Vital Signs Vital signs: Temp Pulse Resp BP Pulse Ox 10 L 138/98 H 98 03/08/17 12:00 03/08/17 11:59 03/08/17 12:08 - Laboratory Result Diagrams: 03/08/17 12:08 03/08/17 12:08 Laboratory results interpreted by me: 03/08/17 03/08/17 12:08 12:08 MCV 99 H MCH 33.6 H RDW 14.3 H Chloride 111 H Carbon Dioxide 17 L Calcium 10.4 H AST 83 H ALT 102 H Creatine Kinase 197 H - Diagnostic Test Radiology reviewed: Reports reviewed Radiology results interpreted by me: 03/08/17 13:24 nad - EKG Interpretation by Me EKG shows normal: Sinus rhythm Rate: Normal Rhythm: NSR [place]/QRS: No: Right axis deviation, Left axis deviation When compared to previous EKG there are: No significant change Discharge - Discharge Clinical Impression: Palpitations Condition: Good Disposition: HOME, SELF-CARE Instructions: Palpitations (Irregular or Rapid Heartrate) ([facility]) Additional Instructions: Continue on her medications. Follow-up with your information systems professor. Return to the emergency department if worse or for any other problems.
--- NOTE | 2017-03-08 13:13 | RADIOLOGY REPORT (SQ) ---
EXAM DESCRIPTION: CHEST SINGLE VIEW COMPLETED DATE/TIME: 03/08/2017 1:02 pm REASON FOR STUDY: cp COMPARISON: 12/27/2016 EXAM PARAMETERS: NUMBER OF VIEWS: One view. TECHNIQUE: Single frontal radiographic view of the chest acquired. RADIATION DOSE: NA LIMITATIONS: None. FINDINGS: LUNGS AND PLEURA: No opacities, masses or pneumothorax. No pleural effusion. MEDIASTINUM AND HILAR STRUCTURES: No masses. Contour normal. HEART AND VASCULAR STRUCTURES: Heart normal in size. Normal vasculature. BONES: No acute findings. HARDWARE: None in the chest. OTHER: No other significant finding. IMPRESSION: NO ACUTE RADIOGRAPHIC FINDING IN THE CHEST. TECHNICAL DOCUMENTATION: JOB ID: [id number]
[2017-03-08 13:41] VITALS: BP 120/84
--- NOTE | 2017-03-08 16:26 | EKG REPORT ---
SEVERITY:- NORMAL ECG - SINUS RHYTHM : Confirmed by: Belkis Buitrago 08-Mar-2017 16:24:15
== END 2017-03-08 13:30 | disposition home or self-care (01) ==
LOC: ER 11:45
DX: R00.2 Palpitations (principal); R06.02 Shortness of breath; I25.2 Old myocardial infarction; Z82.49 Family history of ischemic heart disease and other diseases of the circulatory system; Z79.899 Other long term (current) drug therapy
CPT/HCPCS: 36415; 71010; 80053; 82550; 82553; 84484; 85025; 93005; 93010; 99285

== ENCOUNTER → 2019-04-02 | Outpatient (CLI) | payer MEDICARE, OTHER ==
--- NOTE | 2019-04-02 08:28 | WOMENS IMAGING REPORT ---
EXAM DESCRIPTION: U/S ABDOMEN LIMITED COMPLETED DATE/TIME: 04/02/2019 8:04 am REASON FOR STUDY: B18.2 CHRONIC VIRAL HEPATITIS C B18.2 CHRONIC VIRAL HEPATITIS C COMPARISON: 12/28/2016 TECHNIQUE: Dynamic and static grayscale images acquired of the abdomen and recorded on PACS. Additio nal selected color Doppler and spectral images recorded. LIMITATIONS: None. FINDINGS: PANCREAS: The head and body of the pancreas are of normal echogenicity. The tail is obsc ured by overlying bowel gas. LIVER: Fatty liver, unchanged finding. The liver measures 16.8 cm in length, within the upper limit s of normal range for size. LIVER VASCULATURE: Normal directional flow of the main portal vein and hepatic veins. GALLBLADDER: No stones. The gallbladder wall measures 1.6 mm, normal wall thickness. No pericholecys tic fluid. ULTRASOUND-DETECTED COLON'S SIGN: Negative. INTRAHEPATIC DUCTS AND COMMON DUCT: CBD measures 4.1 mm in diameter, normal. The intrahepatic ducts normal caliber. No filling defects. INFERIOR VENA CAVA: Limited visualization due to overlying bowel gas. Normal flow. AORTA: Limited visualization overlying bowel gas. No aneurysm. RIGHT KIDNEY: The right kidney measures 9.6 x 5.5 x 5.1 cm, normal size. Normal echogenicity. No contreras id or suspicious masses. No hydronephrosis. No calcifications. PERITONEAL AND RIGHT PLEURAL SPACE: No ascites or effusions. OTHER: No other significant findings. IMPRESSION: 1. Fatty liver, unchanged finding since the prior study dated 12/28/2016. 2. Limited visualization of the abdominal aorta and inferior vena cava due to overlying bowel gas. The tail of the pancreas is obscured by overlying bowel gas. TECHNICAL DOCUMENTATION: JOB ID: [id number]- All Rights Reserved Reading location - IP/workstation name: [email or web address]
== END ==
LOC: WI 07:25
PROVIDERS: ATTEND Internal Medicine Gastroenterology
DX: B18.2 Chronic viral hepatitis C (principal)
CPT/HCPCS: 76705